=== PATIENT | male | born 1970 | race Caucasian/White ===

== ENCOUNTER 2023-02-04 13:30 | Emergency (ER) | payer OTHER ==
[~2023-02-04] VITALS: Ht 182.9 cm; Wt 103.4 kg
[2023-02-04 13:39] VITALS: BP 142/90
[2023-02-04] MEDS ORDERED: AMOCLA875 PO (14:42)
[2023-02-04] MEDS ORDERED: IBUP800 PO (14:42)
== END 2023-02-04 15:00 | disposition home or self-care (01) ==
LOC: ER 13:30
DX: K04.7 Periapical abscess without sinus (principal); K02.9 Dental caries, unspecified
CPT/HCPCS: 99282

== ENCOUNTER 2023-12-29 18:21 | Emergency (ER) | payer OTHER ==
[~2023-12-29] VITALS: Ht 182.9 cm; Wt 103.0 kg
[~2023-12-29 18:21] MED LIST: AMOCLA875 PO; IBUP800 PO
[2023-12-29 19:11] LABS: BASOPHILS ABSOLUTE AUTO 0.05 K/mm3 (0.00-0.23); BASOPHILS PERCENT AUTO 1 % (0-2); EOSINOPHILS ABSOLUTE AUTO 0.35 K/mm3 (0.00-0.68); EOSINOPHILS PERCENT AUTO 5 % (0-6); Hematocrit 39.1 % (37.0-53.0); IMMATURE GRAN ABSOLUTE AUTO 0.02 K/mm3 (0.00-0.10); IMMATURE GRAN PERCENT AUTO 0 % (0-1); LYMPHOCYTES ABSOLUTE AUTO 1.17 K/mm3 (0.84-5.20); LYMPHOCYTES PERCENT AUTO 18 % (21-46); MONOCYTES ABSOLUTE AUTO 0.56 K/mm3 (0.16-1.47); MONOCYTES PERCENT AUTO 9 % (4-13); Mean Corpuscular HGB 30.2 pg (26.0-34.0); Mean Corpuscular HGB Conc 35.8 g/dL (31.5-36.5); Mean Corpuscular Volume 84 fL (80-100); Mean Platelet Volume 12.6 fL (9.1-12.4); NEUTROPHILS ABSOLUTE AUTO 4.33 K/mm3 (1.96-9.15); NEUTROPHILS PERCENT AUTO 67 % (41-73); Platelet Count 124 K/mm3 (150-400); RDW Coefficient Variation 13.6 % (11.7-14.2); RDW Standard Deviation 41.5 fL (35.1-46.3); Red Blood Cell Count 4.64 M/mm3 (4.30-5.90); White Blood Cell Count 6.48 K/mm3 (4.00-11.30)
[2023-12-29 19:32] LABS: Albumin/Globulin Ratio 1.3 (0.8-1.8); Bilirubin, Total 0.8 mg/dL (0.1-1.0); Bun/Creatinine Ratio 15.9 (12.0-20.0); Creatinine, Blood 1.32 mg/dL (0.60-1.20); Potassium, Blood 3.8 mmol/L (3.5-5.5)
[2023-12-29] MEDS ORDERED: ROSU10TA PO (21:02)
[2023-12-29] MEDS ORDERED: EUTHYROX50 MCG PO (21:02)
[2023-12-29] MEDS ORDERED: ZYRTEC10 M2 PO (21:02)
[2023-12-29] MEDS ORDERED: OMEP20ER PO (21:03)
[2023-12-29] MEDS ORDERED: ALLO300 PO (21:03)
[2023-12-29] MEDS ORDERED: COQ-10100 MG PO (21:03)
[2023-12-29] MEDS ORDERED: ALLO100 PO (21:03)
[2023-12-29] MEDS ORDERED: Ketorolac Tromethamine 30mg Vial IV ONE (21:20)
[2023-12-29 21:30] VITALS: BP 149/92
== END 2023-12-29 21:34 | disposition home or self-care (01) ==
LOC: ER 18:21
PROVIDERS: Nurse Practitioner
DX: R07.89 Other chest pain (principal); Z79.899 Other long term (current) drug therapy
CPT/HCPCS: 71046; 80053; 84484; 85025; J1885